=== PATIENT | female | born 1930 ===

== ENCOUNTER 2016-11-08 18:40 | Inpatient (IN) | payer MEDICARE, MEDICAID ==
[2016-11-08 18:41] VITALS: BMI 26.9
[2016-11-08] MEDS ORDERED: Piperacillin/Tazobact 3.375 GM in Sodium Chloride 0.9% 100 ML IVPB STA (19:46)
[2016-11-08] MEDS ORDERED: Sodium Chloride 0.9% 1,000 ML IV STA (19:46)
[2016-11-08] MEDS ORDERED: Albuterol-Ipratrop 3 mg / 0.5 (3 ml) UD INH STA ×3 (19:47→20:04)
[2016-11-08] MEDS ORDERED: Piperacillin/Tazobact 3.375 gm Inj IVPB ONE (19:54)
[2016-11-08 20:09] LABS: VENOUS BLOOD GAS BASE EXCESS 2.8 mmol/L (0.0-2.0); VENOUS BLOOD GAS MODE BiPAP; VENOUS BLOOD GAS PCO2 57 mmHg (40-60); VENOUS BLOOD PH 7.33 (7.32-7.43)
[2016-11-08] MEDS ORDERED: Albuterol-Ipratrop 3 mg / 0.5 (3 ml) UD ONE (20:20)
[2016-11-08 20:29] LABS: BASO # 0.2 K/uL (0.0-0.2); BASO % 0.9 % (0.0-2.0); EOS % 0.2 % (0.0-4.0); HEMATOCRIT 41.6 % (34.0-47.0); LYMPH # 2.4 K/uL (1.0-4.3); LYMPH % 11.6 % (20.0-40.0); MEAN CELL VOLUME 91.3 fl (81.0-99.0); MEAN CORPUSCULAR HEMOGLOBIN 28.7 pg (27.0-31.0); MEAN CORPUSCULAR HGB CONC 31.5 g/dL (33.0-37.0); MEAN PLATELET VOLUME 11.6 fl (7.2-11.7); MONO # 1.5 K/uL (0.0-0.8); MONO % 7.2 % (0.0-10.0); NEUT # 16.2 K/uL (1.8-7.0); NEUT % 80.1 % (50.0-75.0); PLATELET COUNT 370 K/uL (130-400); RED CELL DISTRIBUTION WIDTH 15.6 % (11.5-14.5); WHITE BLOOD COUNT 20.2 K/uL (4.8-10.8)
[2016-11-08 20:39] LABS: ALKALINE PHOSPHATASE 157 U/L (38-126); ALT/SGPT 47 U/L (9-52); AST/SGOT 67 U/L (14-36); BILIRUBIN,TOTAL 0.5 mg/dl (0.2-1.3); BLOOD UREA NITROGEN 50 mg/dl (7-17); CALCIUM 9.6 mg/dL (8.4-10.2); CARBON DIOXIDE 29 mmol/L (22-30); CHLORIDE 113 mmol/L (98-107); GFR AFRICAN-AMERICAN > 60; GLUCOSE,RANDOM 273 mg/dL (65-105); MAGNESIUM 2.7 MG/DL (1.6-2.3); PHOSPHOROUS 4.3 mg/dl (2.5-4.5); POTASSIUM 4.5 MMOL/L (3.6-5.0); SODIUM 159 mmol/l (132-148); TOTAL PROTEIN 8.6 G/DL (6.3-8.2)
--- NOTE | 2016-11-08 20:57 | ED PDOC ---
HPI: SOB/CHF/COPD Time Seen by Provider: 11/08/16 19:37 Chief Complaint (Nursing): Medical Clearance Chief Complaint (Provider): Dyspnea History Per: EMS, Family (Son) History/Exam Limitations: clinical condition (dementia) Onset/Duration Of Symptoms: Days (x1) Current Symptoms Are (Timing): Still Present Associated Symptoms: Fever Additional History Per: Jail Additional Complaint(s): 86 year old female brought in by EMS presents to ED from [facility] due to fever and dyspnea x1 day and has a past medical history of COPD, PNA , HTN, CVA, DM, and dementia. Patient is unable to give history due to dementia ; history is presented on behalf of EMS, son (power of traffic law attorney), and prison. retirement notes that fever and dyspnea worsened today. (-) vomiting and diarrhea. Patient is disabled, bedbound, and nonverbal. Latest admission was x2 months ago for PNA. PCP: Dr. Murdock Past Medical History Reviewed: Historical Data, Nursing Documentation, Vital Signs Vital Signs: Last Vital Signs Temp 101.4 F H 11/08/16 18:43 Pulse 103 H 11/08/16 23:09 Resp 16 11/08/16 18:43 BP 155/80 H 11/08/16 18:43 Pulse Ox 99 11/08/16 23:09 - Medical History PMH: Alzheimer's Disease, Anemia, COPD, CVA, Dementia, Depression, Diabetes, GERD, HTN, Pneumonia, TIA Denies: No Chronic Diseases, HIV, Chronic Kidney Disease - Surgical History Surgical History: Denies: No Surg Hx Other surgeries: PEG tube and other abdominal surgeries - Family History Family History: States: Unknown Family Hx - Living Arrangements Living Arrangements: Jail/Assist Lv ([facility]) - Home Medications Home Medications: Ambulatory Orders Medication Instructions Recorded Albuterol/Ipratropium [Duoneb 3 3 ml IH Q8H PRN 01/30/16 mg/0.5 mg (3 ml) UD] Albuterol/Ipratropium [Duoneb 3 3 ml IH TID 01/30/16 mg/0.5 mg (3 ml) UD] Insulin Aspart, Recombinant 2 - 12 unit SC QID 01/30/16 [Novolog] Insulin Detemir [Levemir] 12 unit SQ BID 01/30/16 Menthol [Icy Hot] 1 patch TOP DAILY 01/30/16 Petrolatum,White/Lanolin [Vitamin 1 appl TOP QSHIFT 01/30/16 A & D Ointment] Acetaminophen [Children's 20 mg PEG BID 02/26/16 Acetaminophen] Eyelid Cleanser Combination #5 1 appl OU DAILY 02/26/16 [Ocusoft Lid Scrub] Famotidine 2.5 mg PEG HS 02/26/16 Glipizide [Glucotrol] 5 mg PEG QAM 02/26/16 Home Med 250 mg PEG DAILY 02/26/16 Multivitamin [Multi-Delyn Liquid] 5 mg PEG QOTHERDAY 02/26/16 Potassium Chloride [K-Ayse] 7.5 mg PEG DAILY 02/26/16 Saliva Stimulant Agents Comb.3 1 spray PO DAILY 02/26/16 [Biotene Moisturizing Mouth] metFORMIN [glucOPHAGE] 500 mg PEG BID 02/26/16 cefTRIAXone 1 gm [Rocephin 1 gram 1 gm IVPB DAILY #5 bag 08/06/16 IVPB] - Allergies Allergies/Adverse Reactions: Allergies Allergy/AdvReac Type Severity Reaction Status Date / Time No Known Allergies Allergy Verified 11/08/16 18:43 Review of Systems Review Of Systems: ROS cannot be obtained secondary to pt's inabilty to answer questions. (Limited due to patient's clinical condition) Constitutional: Positive for: Fever Respiratory: Positive for: Other (dyspnea) Gastrointestinal: Negative for: Vomiting, Diarrhea Physical Exam - Reviewed Nursing Documentation Reviewed: Yes Vital Signs Reviewed: Yes - Physical Exam Appears: Positive for: In Acute Distress Head Exam: Positive for: ATRAUMATIC Skin: Positive for: Normal Color, Warm, Dry Eye Exam: Positive for: Normal appearance ENT: Positive for: Other (Dry MM) Neck: Positive for: Normal Cardiovascular/Chest: Positive for: Regular Rate, Rhythm, Tachycardia. Negative for: Edema Respiratory: Positive for: Accessory Muscle Use (increased laborous breathing), Rhonchi (bilateral lungs), Wheezing, Respiratory Distress Gastrointestinal/Abdominal: Positive for: Soft, Distended, Other (PEG tube placement) Extremity: Positive for: Normal ROM. Negative for: Tenderness, Deformity, Swelling Neurologic/Psych: Negative for: Alert (awake), Oriented (Confused) - Laboratory Results Result Diagrams: 11/08/16 20:10 11/08/16 20:10 - ECG ECG: Positive for: Interpreted By Me, Viewed By Me ECG Rhythm: Positive for: Sinus Rhythm, Sinus Tachycardia, Right Bundle Branch Block, Nonspecific Changes Rate: 103 O2 Sat by Pulse Oximetry: 99 (RA) Pulse Ox Interpretation: Normal - Critical Care Total Time (In Min): 60 Medical Decision Making Medical Decision Makin Initial impression: PNA, COPD exacerbation, possible UTI, sepsis Initial plan: * VBG shock panel * EKG * Labs * Magnesium * Phosphorus * Trop I * PTT/PT * CXR * Duonebs 3mL INH x3 * NS IV * Solumedrol 125mg IVP * Acetaminophen 957mg ID * Piperacillin IVPB * BCx * UCx * BIPAP procedure * Peak flow pre/post Tx x3 * Procalcitonin serum * Re-eval 2129 Upon re-evaluation, patient's symptoms have improved but is still in respiratory distress. Discussed goals with family, will contact Dr. Murdock to discuss admission. Dx: sepsis, HCAP, COPD exacerbation Scribe Attestation: Documented by Leeanna Hobbs acting as a scribe for Kunal Alatorre MD. Scribe Attestation: All medical record entries made by the Scribe were at my direction and personally dictated by me. I have reviewed the chart and agree that the record accurately reflects my personal performance of the history, physical exam, medical decision making, and the department course for this patient. I have also personally directed, reviewed, and agree with the discharge instructions and disposition. Disposition - Clinical Impression Clinical Impression: COPD (chronic obstructive pulmonary disease), Dehydration, CHF (congestive heart failure), Hypernatremia, Diabetes mellitus with hyperglycemia, Sepsis, Respiratory failure, Healthcare-associated pneumonia - Patient ED Disposition Is Patient to be Admitted: Yes Discussed With : Sadiq Murdock Doctor Will See Patient In The: Hospital Counseled Patient/Family Regarding: Studies Performed, Diagnosis - Disposition Disposition Time: 21:30 Condition: CRITICAL - Pt Status Changed To: Hospital Disposition Of: Inpatient - Admit Certification Admit to Inpatient:: After my assessment, the patient will require hospitalization for at least two midnights. This is because of the severity of symptoms shown, intensity of services needed, and/or the medical risk in this patient being treated as an outpatient. - POA Present On Arrival: Poor Glycemic Control Core Measure Indicators: Pneumonia
[2016-11-08 21:23] LABS: PARTIAL THROMBOPLASTIN TIME 23.6 SECONDS (23.3-32.5)
[2016-11-08] MEDS ORDERED: Ciprofloxacin 400mg/200ml D5W 200 ML IVPB STA (21:31)
--- NOTE | 2016-11-08 21:59 | CP.PCM.CON ---
History of Present Illness - History of Present Illness History of Present Illness: CC/Reason for ICU: resp failure requiring bipap 2/2 HCAP HPI: This is an 86 y/o female with COPD/DM2/?TIA or CVA/Alzheimer's disease/ GERD who comes from [place] with respiratory failure. She has had multiple prior admissions for the same reason, last being in July. Patient unable to provide any further details due to mental status. Per son, she was at baseline on Wednesday. PMD: Collette ROS: unable to obtain 2/2 mental status MHx: COPD/DM2/?TIA or CVA/Alzheimer's disease/GERD SHx: PEG tube Allergies: NKDA Medications: As per med rec Family Hx: Unable to obtain Social Hx: Resides at [place], no EtOH, no tobacco Surrogate Decision Maker: Son, Carlos Joy, info on file; patient is DNR/ DNI Past Patient History - Infectious Disease Hx of Infectious Diseases: None - Past Medical History & Family History Past Medical History?: Yes - Past Social History Smoking Status: Former Smoker - CARDIAC Hx Hypertension: Yes - PULMONARY Hx Chronic Obstructive Pulmonary Disease (COPD): Yes Hx Pneumonia: Yes - NEUROLOGICAL Hx Alzheimer's Disease: Yes Hx Dementia: Yes Hx Transient Ischemic Attacks (TIA): Yes - HEENT Hx HEENT Problems: Yes Hx Cataracts: Yes (Left eye) - RENAL Hx Chronic Kidney Disease: No - ENDOCRINE/METABOLIC Hx Endocrine Disorders: Yes Hx Diabetes Mellitus Type 2: Yes - HEMATOLOGICAL/ONCOLOGICAL Hx Anemia: Yes Hx Human Immunodeficiency Virus (HIV): No - INTEGUMENTARY Hx Dermatological Problems: No - MUSCULOSKELETAL/RHEUMATOLOGICAL Hx Musculoskeletal Disorders: Yes Hx Falls: Yes - GASTROINTESTINAL Hx Gastrointestinal Disorders: Yes Hx Gastroesophageal Reflux: Yes - GENITOURINARY/GYNECOLOGICAL Hx Genitourinary Disorders: No - PSYCHIATRIC Hx Depression: Yes - SURGICAL HISTORY Hx Surgeries: Yes Hx Eye Surgery: Yes (R eye cataract) Other/Comment: PEG tube - ANESTHESIA Hx Anesthesia: Yes Hx Anesthesia Reactions: No Meds Allergies/Adverse Reactions: Allergies Allergy/AdvReac Type Severity Reaction Status Date / Time No Known Allergies Allergy Verified 11/08/16 18:43 - Medications Medications: Current Medications Acetaminophen (Tylenol 325 Mg Supp) 975 mg WA ONCE PRN PRN Reason: Fever >100.4 F Ciprofloxacin (Cipro 400mg/200ml Dsw) 200 mls @ 200 mls/hr IVPB STAT STA Stop: 11/08/16 22:30 Vancomycin HCl 1 gm/ Sodium (Chloride) 250 mls @ 166.667 mls/hr IVPB STAT STA Stop: 11/08/16 23:01 Physical Exam - Constitutional Appears: No Acute Distress - Head Exam Head Exam: ATRAUMATIC, NORMOCEPHALIC - Eye Exam Eye Exam: EOMI, PERRL - ENT Exam ENT Exam: Mucous Membranes Dry - Neck Exam Neck exam: Positive for: Full Rom - Respiratory Exam Respiratory Exam: Rhonchi, Wheezes - Cardiovascular Exam Cardiovascular Exam: REGULAR RHYTHM, +S1, +S2 - GI/Abdominal Exam GI & Abdominal Exam: Normal Bowel Sounds, Soft - Extremities Exam Extremities exam: Positive for: normal inspection - Neurological Exam Neurological exam: Altered - Skin Skin Exam: Dry, Warm Results - Vital Signs Recent Vital Signs: Last Vital Signs Temp 101.4 F H 11/08/16 18:43 Pulse 106 H 11/08/16 18:43 Resp 16 11/08/16 18:43 BP 155/80 H 11/08/16 18:43 Pulse Ox 99 11/08/16 21:40 - Labs Result Diagrams: 11/08/16 20:10 11/08/16 20:10 - EKG Data EKG Interpreted by: Myself EKG shows normal: Sinus rhythm Rate: Tachycardia - EKG Data EKG comments: IVCD - Imaging and Cardiology Chest x-ray Status: Image reviewed by me (poor insp film. No clear infiltrate.) Assessment & Plan (1) Sepsis Assessment and Plan: This is an 86 y/o with multiple medical conditions here with sepsis 2/2 to likely HCAP. (1) Severe sepsis Assessment and Plan: 1) HCAP/Respiratory Failure/Sepsis -Admit to ICU -Duonebs q6h -Cont Vanc/Zosyn/Cipro IV -Rec'd IV solumedrol x 1, will re-assess and repeat only if no improvement in respiratory status given diabetes -f/u Cultures -Repeat lactic acid 2) Hypernatremia -Free water deficit calculated to be ~3L -1/2 NS, but at low rate given already high BNP (~75 cc hr) 3) DM2 -- q6h accucheck, SSI 4) DVT PPx -- SQ Lovenox 5) Code status -- DNR/DNI Crit Care time: 45 Status: Acute Priority: High (2) Acute respiratory failure with hypoxia Status: Acute (3) COPD (chronic obstructive pulmonary disease) Status: Acute (4) DVT prophylaxis Status: Acute (5) Diabetes mellitus with hyperglycemia Status: Acute (6) Dementia Status: Chronic
[2016-11-08] MEDS ORDERED: Dextrose 5%/0.45% NS 1,000 ML IV SCH (22:15)
[2016-11-08] MEDS ORDERED: Acetaminophen 650mg/20.3ml solution UD PEG PRN (22:21)
[2016-11-08] MEDS ORDERED: Albuterol-Ipratrop 3 mg / 0.5 (3 ml) UD INH PRN (22:25)
[2016-11-08 22:26] LABS: NEUTROPHIL 73 % (42-75); TOTAL CELLS COUNTED 100
[2016-11-08 22:27] LABS: STOMATOCYTES SLIGHT
[2016-11-08] MEDS ORDERED: LANOLIN TOP SCH (22:30)
[2016-11-08] MEDS ORDERED: Sodium Chloride 0.45% 1,000 ML IV SCH (22:30)
[2016-11-08] MEDS ORDERED: PETROLATUM WHITE TOP SCH (22:30)
[2016-11-08] MEDS ORDERED: APPL TOP SCH (22:30)
[2016-11-08] MEDS ORDERED: Vancomycin 1 g Inj ONE (23:15)
[2016-11-08] MEDS ORDERED: Vitamins A & D Oint UD Foilpak TOP SCH (23:15)
[2016-11-09] MEDS: Insulin Lispro (humaLOG) 100 Units/ml Inj SC SCH ×4 (02:14→17:44)
[2016-11-09] MEDS ORDERED: Insulin Regular 100 units/ml SC ONE (04:18)
[2016-11-09] MEDS: Piperacillin/Tazobact 3.375 GM in Sodium Chloride 0.9% 100 ML IVPB SCH ×4 (04:31→22:27)
[2016-11-09 05:54] LABS: BASO % 0.2 % (0.0-2.0); HEMATOCRIT 36.8 % (34.0-47.0); LYMPH # 0.6 K/uL (1.0-4.3); LYMPH % 3.2 % (20.0-40.0); MEAN CELL VOLUME 92.6 fl (81.0-99.0); MEAN CORPUSCULAR HEMOGLOBIN 28.9 pg (27.0-31.0); MEAN CORPUSCULAR HGB CONC 31.2 g/dL (33.0-37.0); MONO # 0.1 K/uL (0.0-0.8); MONO % 0.8 % (0.0-10.0); NEUT # 16.7 K/uL (1.8-7.0); NEUT % 95.8 % (50.0-75.0); PLATELET COUNT 247 K/uL (130-400); RED CELL DISTRIBUTION WIDTH 15.1 % (11.5-14.5); WHITE BLOOD COUNT 17.5 K/uL (4.8-10.8)
[2016-11-09 06:09] LABS: BLOOD UREA NITROGEN 48 mg/dl (7-17); CALCIUM 8.6 mg/dL (8.4-10.2); CARBON DIOXIDE 19 mmol/L (22-30); CHLORIDE 116 mmol/L (98-107); GFR AFRICAN-AMERICAN > 60; POTASSIUM 4.6 MMOL/L (3.6-5.0); SODIUM 157 mmol/l (132-148)
[2016-11-09 06:10] LABS: GLUCOSE,RANDOM 479 mg/dL (65-105)
[2016-11-09 07:01] LABS: NEUTROPHIL 91 % (42-75); TOTAL CELLS COUNTED 100
[2016-11-09] MEDS ORDERED: Pneumococcal 23-Valent Vaccine IM ONE (08:20)
--- NOTE | 2016-11-09 08:31 | CARD ---
APPROVED REPORT EKG Measurement Heart [id number] <Conclusion> Sinus tachycardia Incomplete right bundle branch block T wave abnormality, consider anterior ischemia Abnormal ECG
--- NOTE | 2016-11-09 08:51 | RAD ---
HISTORY: Sepsis Patient COMPARISON: Comparison is made to 08/02/2016 FINDINGS: LUNGS: No evidence of new infiltrate or consolidation in the lungs. PLEURA: No significant pleural effusion identified, no pneumothorax apparent. CARDIOVASCULAR: Normal. OSSEOUS STRUCTURES: No significant abnormalities. VISUALIZED UPPER ABDOMEN: Normal. OTHER FINDINGS: None. IMPRESSION: No active disease.
[2016-11-09] MEDS ORDERED: SALIVA STIMULANT AGENTS COMB PO SCH (09:00)
[2016-11-09] MEDS ORDERED: Ciprofloxacin 400mg/200ml D5W 200 ML IVPB SCH (09:00)
[2016-11-09] MEDS ORDERED: [UNRECOGNIZED DRUG - OTHER] OU SCH (09:00)
--- NOTE | 2016-11-09 09:47 | CP.CCUPN ---
CCU Subjective - Physician Review Events Since Last Encounter (Free Text): 11/09/16 16:26 The Patient was seen and examined at the bedside, Medical records reviewed, all clinical/lab/hemodynamic/radiographic data were reviewed and management issues were discussed and formulated, Events reviewed Pain issues, skin care, head of the bed elevation, GI/DVT prophylaxis, glycemic control were addressed. 86 Y/O F with PMHx of COPD, GERD, DM2, TIA, CVA and Alzheimer's disease who was transferred from [place] last night with fever, dyspnea x1 day and respiratory failure. Admitted to the ICU for HCAP and started on IV Vancomycin, Zosyn and Ciprofloxacin Patient afebrile BP stable ABG with elevated CO2, placed on BIPAP She has had multiple prior admissions for the same reason, last being in July. Patient unable to provide any further details due to mental status. Per son, the patient is DNR/DNI CCU Objective - Vital Signs / Intake & Output Vital Signs (Last 4 hours): Vital Signs Temp Pulse Resp BP Pulse Ox 11/09/16 08:00 99.2 F 89 25 H 143/72 99 11/09/16 06:00 98.7 F 88 24 148/61 100 Intake and Output (Last 8hrs): Intake & Output 11/08/16 11/09/16 11/09/16 22:59 06:59 14:59 Intake Total 900 150 Balance 900 150 Intake: IV 450 150 Intake, Piggyback 450 - Physical Exam Physical Exam Limitations: Positive for: Clinical Condition Head: Positive for: Atraumatic, Normocephalic Pupils: Positive for: PERRL. Negative for: Sluggish, Non-Reactive Extroacular Muscles: Positive for: EOMI. Negative for: Gaze Palsy, Entrapment Mouth: Positive for: Dry. Negative for: Moist Mucous Membranes Pharnyx: Positive for: Normal. Negative for: ERYTHEMA Nose (External): Positive for: Atraumatic. Negative for: Abrasion, Contusion Nose (Internal): Positive for: Normal Inspection Neck: Positive for: Normal Range of Motion, Trachea Midline. Negative for: Meningeal Signs, MIDLINE TENDERNESS, Paraspinal Tenderness, JVD, Lymphadenopathy , Bruit, Other Respiratory/Chest: Positive for: Good Air Exchange, Decreased Breath Sounds, Rales, Rhonchi. Negative for: Clear to Auscultation, Respiratory Distress, Accessory Muscle Use, Wheezes Cardiovascular: Positive for: Regular Rate and Rhythm, Normal S1, S2, Peripheal Pulses Present. Negative for: Murmurs, Irregular Rhythm, Tachycardic, Bradycardic Abdomen: Positive for: Normal Bowel Sounds. Negative for: Tenderness, Distention - Medications Active Medications: Active Medications Generic Name Dose Route Start Last Admin Trade Name Freq PRN Reason Stop Dose Admin Acetaminophen 975 mg 11/08/16 19:44 11/08/16 21:05 Tylenol 325 Mg Supp UT 975 mg ONCE PRN Administration Fever >100.4 F Acetaminophen 650 mg 11/08/16 22:21 Tylenol 650mg/20.3ml Solution Ud PEG Q6H PRN Fever >100.4 F Albuterol/Ipratropium 3 ml 11/08/16 22:25 Duoneb 3 Mg/0.5 Mg (3 Ml) Ud INH RQ6 PRN Shortness of Breath Enoxaparin Sodium 40 mg 11/09/16 09:00 Lovenox SC DAILY [facility] Protocol Home Med 1 appl 11/09/16 09:00 Eyelid Cleanser Combination #5 [Ocusoft Lid Scrub] OU DAILY [facility] Home Med 2.5 mg 11/09/16 22:00 Famotidine [Famotidine] PEG HS [facility] Home Med 1 spray 11/09/16 09:00 Saliva Stimulant Agents Comb.3 [Biotene Moisturizing Mouth] PO DAILY [facility] Piperacillin Sod/Tazobactam 100 mls @ 100 mls/hr 11/09/16 04:00 11/09/16 04:31 Sod 3.375 gm/ Sodium Chloride IVPB 100 mls/hr Q6 MARILEE Administration Sodium Chloride 1,000 mls @ 75 mls/hr 11/08/16 22:30 11/09/16 00:16 Sodium Chloride 0.45% IV 11/09/16 11:49 75 mls/hr .[id number] MARILEE Administration Ciprofloxacin 200 mls @ 200 mls/hr 11/09/16 14:00 Cipro 400mg/200ml Dsw IVPB Q12@0200,1400 [facility] Vancomycin HCl 1 gm/ Sodium 250 mls @ 166.667 mls/hr 11/09/16 11:00 Chloride IVPB Q12@1100,2300 [facility] Insulin Human Lispro 0 units 11/08/16 22:15 11/09/16 06:33 Humalog SC 6 unit Q6H [facility] Administration Protocol Multivitamins/Vitamin C 5 ml 11/10/16 09:00 Multi-Delyn Liquid PEG QOTHERDAY [facility] Vitamin A 1 ea 11/08/16 23:15 Vitamin A & D Oint Ud Foilpak TOP QSHIFT [facility] - Patient Studies Lab Studies: Lab Studies 11/09/16 11/09/16 11/09/16 Range/Units 06:29 04:40 04:04 WBC 17.5 H (4.8-10.8) K/uL RBC 3.98 (3.80-5.20) Mil/uL Hgb 11.5 L (12.0-16.0) g/dL Hct 36.8 (34.0-47.0) % MCV 92.6 (81.0-99.0) fl MCH 28.9 (27.0-31.0) pg MCHC 31.2 L (33.0-37.0) g/dL RDW 15.1 H (11.5-14.5) % Plt Count 247 D (130-400) K/uL MPV 11.0 (7.2-11.7) fl Neut % (Auto) 95.8 H (50.0-75.0) % Lymph % (Auto) 3.2 L (20.0-40.0) % Perkins % (Auto) 0.8 (0.0-10.0) % Eos % (Auto) 0.0 (0.0-4.0) % Baso % (Auto) 0.2 (0.0-2.0) % Neut # 16.7 H (1.8-7.0) K/uL Lymph # 0.6 L (1.0-4.3) K/uL Perkins # 0.1 (0.0-0.8) K/uL Eos # 0.0 (0.0-0.7) K/uL Baso # 0.0 (0.0-0.2) K/uL Neutrophils % (Manual) 91 H (42-75) % Band Neutrophils % 3 H (0-2) % Lymphocytes % (Manual) 6 L (20-50) % Monocytes % (Manual) 0 (0-10) % Platelet Estimate Normal (NORMAL) Anisocytosis (manual) Slight Sodium 157 H (132-148) mmol/l Potassium 4.6 (3.6-5.0) MMOL/L Chloride 116 H (98-107) mmol/L Carbon Dioxide 19 L (22-30) mmol/L Anion Gap 27 H (10-20) BUN 48 H (7-17) mg/dl Creatinine 0.9 (0.7-1.2) mg/dL Est GFR ( Amer) > 60 Est GFR (Non-Af Amer) 60 POC Glucose (mg/dL) 434 H* > 500 H* (65-110) mg/dL Random Glucose 479 H* D (65-105) mg/dL Calcium 8.6 (8.4-10.2) mg/dL Influenza Typ A,B (EIA) (NEGATIVE) 11/09/16 11/08/16 Range/Units 02:05 22:14 WBC (4.8-10.8) K/uL RBC (3.80-5.20) Mil/uL Hgb (12.0-16.0) g/dL Hct (34.0-47.0) % MCV (81.0-99.0) fl MCH (27.0-31.0) pg MCHC (33.0-37.0) g/dL RDW (11.5-14.5) % Plt Count (130-400) K/uL MPV (7.2-11.7) fl Neut % (Auto) (50.0-75.0) % Lymph % (Auto) (20.0-40.0) % Perkins % (Auto) (0.0-10.0) % Eos % (Auto) (0.0-4.0) % Baso % (Auto) (0.0-2.0) % Neut # (1.8-7.0) K/uL Lymph # (1.0-4.3) K/uL Perkins # (0.0-0.8) K/uL Eos # (0.0-0.7) K/uL Baso # (0.0-0.2) K/uL Neutrophils % (Manual) (42-75) % Band Neutrophils % (0-2) % Lymphocytes % (Manual) (20-50) % Monocytes % (Manual) (0-10) % Platelet Estimate (NORMAL) Anisocytosis (manual) Sodium (132-148) mmol/l Potassium (3.6-5.0) MMOL/L Chloride (98-107) mmol/L Carbon Dioxide (22-30) mmol/L Anion Gap (10-20) BUN (7-17) mg/dl Creatinine (0.7-1.2) mg/dL Est GFR ( Amer) Est GFR (Non-Af Amer) POC Glucose (mg/dL) 487 H* (65-110) mg/dL Random Glucose (65-105) mg/dL Calcium (8.4-10.2) mg/dL Influenza Typ A,B (EIA) Negative for flu a/b (NEGATIVE) Laboratory Results - last 24 hr 11/08/16 11/09/16 11/09/16 22:14 02:05 04:04 WBC RBC Hgb Hct MCV MCH MCHC RDW Plt Count MPV Neut % (Auto) Lymph % (Auto) Perkins % (Auto) Eos % (Auto) Baso % (Auto) Neut # Lymph # Perkins # Eos # Baso # Neutrophils % (Manual) Band Neutrophils % Lymphocytes % (Manual) Monocytes % (Manual) Platelet Estimate Anisocytosis (manual) Sodium Potassium Chloride Carbon Dioxide Anion Gap BUN Creatinine Est GFR ( Amer) Est GFR (Non-Af Amer) POC Glucose (mg/dL) 487 H* > 500 H* Random Glucose Calcium Influenza Typ A,B (EIA) Negative for flu a/b 11/09/16 11/09/16 04:40 06:29 WBC 17.5 H RBC 3.98 Hgb 11.5 L Hct 36.8 MCV 92.6 MCH 28.9 MCHC 31.2 L RDW 15.1 H Plt Count 247 D MPV 11.0 Neut % (Auto) 95.8 H Lymph % (Auto) 3.2 L Perkins % (Auto) 0.8 Eos % (Auto) 0.0 Baso % (Auto) 0.2 Neut # 16.7 H Lymph # 0.6 L Perkins # 0.1 Eos # 0.0 Baso # 0.0 Neutrophils % (Manual) 91 H Band Neutrophils % 3 H Lymphocytes % (Manual) 6 L Monocytes % (Manual) 0 Platelet Estimate Normal Anisocytosis (manual) Slight Sodium 157 H Potassium 4.6 Chloride 116 H Carbon Dioxide 19 L Anion Gap 27 H BUN 48 H Creatinine 0.9 Est GFR ( Amer) > 60 Est GFR (Non-Af Amer) 60 POC Glucose (mg/dL) 434 H* Random Glucose 479 H* D Calcium 8.6 Influenza Typ A,B (EIA) Fingerstick Blood Sugar Results: 434 Review of Systems - Review of Systems Systems not reviewed;Unavailable: Altered Mental Status Critical Care Progress Note - Extremities/Vascular Does the Patient have a Central Venous Catheter?: No Does the Patient need a Central Venous Catheter?: No Does the Patient have a Whitten Catheter?: No Does the Patient need a Whitten Catheter?: No - Nutrition Nutrition: Nutrition Category Date Time Status NPO Diet [DIET] Diets 11/08/16 Breakfast Active Assessment/Plan (1) Acute respiratory failure with hypoxia Current Visit: No Status: Acute Comment: Wean off FIO2, discontinue BIPAP Supolemental Oxygen to keep O2 sat >94% Frequent Neuro-check PEG tube feeding MONITOR URINE OUTPUT BD NEBS Q 6H PRN Aggressive pulmonary toilet, Aspiration precautions GI/DVT PPX with SCDs, SQ Lovenox and Famotidine Duonebs q6h (2) Severe sepsis Current Visit: No Status: Acute Comment: Frequent LABS/LYTES/CBC, XR, EKG Continue Antibiotics with IV Vancomycin, Zosyn and Ciprofloxacin Keep MAP 65-75 IV Hydratoins Monitor urine output Strict Is & Os Aggressive Pulmonary toilets (3) HCAP (healthcare-associated pneumonia) Current Visit: Yes Status: Acute Comment: PER SEVERE SEPSIS (4) CHF (congestive heart failure) Current Visit: Yes Status: Acute (5) COPD (chronic obstructive pulmonary disease) Current Visit: Yes Status: Acute Comment: Duonebs q6h (6) Hypernatremia Current Visit: Yes Status: Acute Priority: High Comment: Free water deficit calculated to be ~3L IV Hydrations with Dextrose 5% In Water Sodium level 159----:>157 (7) Dementia Current Visit: No Status: Chronic Comment: Per son, the patient is DNR/DNI (8) DVT prophylaxis Current Visit: No Status: Acute Comment: Lovenox - Assessment and Plan (Free Text) Assessment: TOTAL CRITICAL CARE TIME 54 MINUTES
[2016-11-09] MEDS: Enoxaparin 40 mg Syringe SC SCH (11:27)
[2016-11-09] MEDS: Ciprofloxacin 400mg/200ml D5W 200 ML IVPB SCH (15:04)
--- NOTE | 2016-11-09 18:03 | CP.PCM.HP ---
History of Present Illness - History of Present Illness History of Present Illness: CC: Dyspnea. 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 Pt arrives to hospital with difficulty in breathing associated to fever, TMAx 101.4 Worsening symptoms : Dementia, Lab result at [place]: WBC elevated 15,000 Glucose > 400. Pt is DNR/ DNI by her son Carlos Carter who has the power of grinder watch parts. Aggravated Factor: Pt nonverbal, Bedbound. As per Son: No Epistaxis, syncope, vomiting, diarrhea, sick contact. PMHx: HTN, CHF, DMII, COPD, TIA, Anemia, Depression, Alzheimer's, Dementia EKG: Sinus Tachycardia. Incomplete R bundle branch block, anterior Ischemia. CXR: No new infiltrate or consolidation. , Present on Admission - Present on Admission Any Indicators Present on Admission: Yes History of Uncontrolled Diabetes: Yes Review of Systems - Review of Systems Systems not reviewed;Unavailable: Acuity of Condition, Respiratory Distress, Dementia Past Patient History - Infectious Disease Hx of Infectious Diseases: None - Past Medical History & Family History Past Medical History?: Yes Pertinent Family History: Unknown. - Past Social History Smoking Status: Former Smoker Alcohol: None Drugs: Denies Home Situation {Lives}: Usp - CARDIAC Hx Cardiac Disorders: Yes Hx Congestive Heart Failure: Yes Hx Hypertension: Yes - PULMONARY Hx Respiratory Disorders: Yes Hx Chronic Obstructive Pulmonary Disease (COPD): Yes - NEUROLOGICAL Hx Neurological Disorder: Yes - HEENT Hx HEENT Problems: Yes Hx Cataracts: Yes (Left eye) - RENAL Hx Chronic Kidney Disease: No - ENDOCRINE/METABOLIC Hx Endocrine Disorders: Yes Hx Diabetes Mellitus Type 2: Yes - HEMATOLOGICAL/ONCOLOGICAL Hx Blood Disorders: No Hx AIDS: No Hx Human Immunodeficiency Virus (HIV): No - INTEGUMENTARY Hx Dermatological Problems: No - MUSCULOSKELETAL/RHEUMATOLOGICAL Hx Musculoskeletal Disorders: No Hx Falls: No - GASTROINTESTINAL Hx Gastrointestinal Disorders: Yes Hx Gastroesophageal Reflux: Yes - GENITOURINARY/GYNECOLOGICAL Hx Genitourinary Disorders: No - PSYCHIATRIC Hx Psychophysiologic Disorder: Yes Hx Depression: Yes Hx Substance Use: No - SURGICAL HISTORY Hx Surgeries: Yes Hx Eye Surgery: Yes (R eye cataract) Other/Comment: PEG tube - ANESTHESIA Hx Anesthesia: Yes Hx Anesthesia Reactions: No Meds Allergies/Adverse Reactions: Allergies Allergy/AdvReac Type Severity Reaction Status Date / Time No Known Allergies Allergy Verified 11/08/16 18:43 Physical Exam - Constitutional Appears: Chronically Ill - Head Exam Head Exam: NORMAL INSPECTION - Eye Exam Eye Exam: PERRL - ENT Exam Additional comments: poor oral hygiene - Neck Exam Neck exam: Positive for: Normal Inspection - Respiratory Exam Respiratory Exam: Decreased Breath Sounds (at bases), Rales (at bases), Rhonchi (b/l) - Cardiovascular Exam Cardiovascular Exam: REGULAR RHYTHM - GI/Abdominal Exam GI & Abdominal Exam: Normal Bowel Sounds, Soft - Extremities Exam Additional comments: B/L legs edema - Back Exam Additional comments: Pressure ulcer Left buttock - Neurological Exam Additional comments: Open eyes at times, Mumbling sounds, no following commands , purposeless movements U/E L/E , generalized weakness - Skin Skin Exam: Warm Results - Vital Signs Recent Vital Signs: Last Vital Signs Temp 98.6 F 11/09/16 16:00 Pulse 86 11/09/16 16:51 Resp 14 11/09/16 16:00 BP 147/68 11/09/16 16:00 Pulse Ox 100 11/09/16 16:00 reviewed J.PKane - Labs Result Diagrams: 11/10/16 04:45 11/10/16 04:45 Labs: Laboratory Results - last 24 hr 11/08/16 11/09/16 11/09/16 22:14 02:05 04:04 WBC RBC Hgb Hct MCV MCH MCHC RDW Plt Count MPV Neut % (Auto) Lymph % (Auto) [place] % (Auto) Eos % (Auto) Baso % (Auto) Neut # Lymph # [place] # Eos # Baso # Neutrophils % (Manual) Band Neutrophils % Lymphocytes % (Manual) Monocytes % (Manual) Platelet Estimate Anisocytosis (manual) Sodium Potassium Chloride Carbon Dioxide Anion Gap BUN Creatinine Est GFR ( Amer) Est GFR (Non-Af Amer) POC Glucose (mg/dL) 487 H* > 500 H* Random Glucose Calcium Influenza Typ A,B (EIA) Negative for flu a/b 11/09/16 11/09/16 11/09/16 04:40 06:29 11:33 WBC 17.5 H RBC 3.98 Hgb 11.5 L Hct 36.8 MCV 92.6 MCH 28.9 MCHC 31.2 L RDW 15.1 H Plt Count 247 D MPV 11.0 Neut % (Auto) 95.8 H Lymph % (Auto) 3.2 L [place] % (Auto) 0.8 Eos % (Auto) 0.0 Baso % (Auto) 0.2 Neut # 16.7 H Lymph # 0.6 L [place] # 0.1 Eos # 0.0 Baso # 0.0 Neutrophils % (Manual) 91 H Band Neutrophils % 3 H Lymphocytes % (Manual) 6 L Monocytes % (Manual) 0 Platelet Estimate Normal Anisocytosis (manual) Slight Sodium 157 H Potassium 4.6 Chloride 116 H Carbon Dioxide 19 L Anion Gap 27 H BUN 48 H Creatinine 0.9 Est GFR ( Amer) > 60 Est GFR (Non-Af Amer) 60 POC Glucose (mg/dL) 434 H* 273 H Random Glucose 479 H* D Calcium 8.6 Influenza Typ A,B (EIA) 11/09/16 17:41 WBC RBC Hgb Hct MCV MCH MCHC RDW Plt Count MPV Neut % (Auto) Lymph % (Auto) [place] % (Auto) Eos % (Auto) Baso % (Auto) Neut # Lymph # [place] # Eos # Baso # Neutrophils % (Manual) Band Neutrophils % Lymphocytes % (Manual) Monocytes % (Manual) Platelet Estimate Anisocytosis (manual) Sodium Potassium Chloride Carbon Dioxide Anion Gap BUN Creatinine Est GFR ( Amer) Est GFR (Non-Af Amer) POC Glucose (mg/dL) 307 H Random Glucose Calcium Influenza Typ A,B (EIA) reviewed J.P. - EKG Data EKG comments: reviewed J.P. - Imaging and Cardiology Chest x-ray Status: Report reviewed by me (J.P.) Assessment & Plan (1) Respiratory failure Status: Acute (2) Severe sepsis Status: Acute (3) Hypernatremia Status: Acute Priority: High (4) COPD (chronic obstructive pulmonary disease) Status: Acute (5) Diabetes mellitus with hyperglycemia Status: Acute - Assessment and Plan (Free Text) Plan: BIPAP, Vanco, Cipro, Zosyn, Duoneb, Insulin and rest of Tx. F/U Blood C-S, U C- S , f/u CT Chest , ECHO ICU Time: 65 min. - Date & Time Date: 11/09/16 Time: 10:30
[2016-11-09] MEDS ORDERED: FAMOTIDINE PEG SCH (22:00)
[2016-11-10] MEDS: Insulin Lispro (humaLOG) 100 Units/ml Inj SC SCH ×5 (00:14→17:30)
[2016-11-10] MEDS: Ciprofloxacin 400mg/200ml D5W 200 ML IVPB SCH ×2 (02:00→16:07)
[2016-11-10] MEDS: Piperacillin/Tazobact 3.375 GM in Sodium Chloride 0.9% 100 ML IVPB SCH ×4 (03:47→21:20)
[2016-11-10 05:27] LABS: HEMATOCRIT 30.9 % (34.0-47.0); MEAN CELL VOLUME 92.7 fl (81.0-99.0); MEAN CORPUSCULAR HEMOGLOBIN 28.7 pg (27.0-31.0); MEAN CORPUSCULAR HGB CONC 30.9 g/dL (33.0-37.0); RED CELL DISTRIBUTION WIDTH 15.1 % (11.5-14.5); WHITE BLOOD COUNT 13.3 K/uL (4.8-10.8)
[2016-11-10 05:37] LABS: BLOOD UREA NITROGEN 37 mg/dl (7-17); CALCIUM 7.9 mg/dL (8.4-10.2); CARBON DIOXIDE 23 mmol/L (22-30); CHLORIDE 117 mmol/L (98-107); GFR AFRICAN-AMERICAN > 60; GLUCOSE,RANDOM 346 mg/dL (65-105); POTASSIUM 3.6 MMOL/L (3.6-5.0); SODIUM 152 mmol/l (132-148)
--- NOTE | 2016-11-10 07:35 | CP.CCUPN ---
CCU Subjective - Physician Review Events Since Last Encounter (Free Text): 11/10/16 10:46 The Patient was seen and examined at the bedside, Medical records reviewed, all clinical/lab/hemodynamic/radiographic data were reviewed and management issues were discussed and formulated, Events reviewed Pain issues, skin care, head of the bed elevation, GI/DVT prophylaxis, glycemic control were addressed. 86 Y/O shelter resident F with PMHx of COPD, GERD, DM2, TIA, CVA and Alzheimer's disease who was transferred from [place] last night with fever, dyspnea x1 day and respiratory failure. She has had multiple prior admissions for the same reason, last being in July. Admitted to the ICU for HCAP and started on IV Vancomycin, Zosyn and Ciprofloxacin Patient afebrile BP stable ABG with elevated CO2, placed on BIPAP, then discontinue BIPAP On Supplemental Oxygen to keep O2 sat >94% Afebrile for the last 24 hours Leucocytosis trending down 2017.513K Urine for gram negative rods On IV Antibiotics with Zosyn and Ciprofloxacin Will D/C IV Vancomycin Last 24 H I&O 2960/700 Sodium level 159----:>157 ----:>152 Free water via PEG Per son, the patient is DNR/DNI 11/10/16 11:55 For this admission, Patient with chronic not acute CHF, type undetermined CCU Objective - Vital Signs / Intake & Output Vital Signs (Last 4 hours): Vital Signs Temp Pulse Resp BP Pulse Ox 11/10/16 06:00 76 25 H 117/47 L 100 11/10/16 04:00 98.7 F 73 23 98 Intake and Output (Last 8hrs): Intake & Output 11/09/16 11/10/16 11/10/16 22:59 06:59 14:59 Intake Total 775 1385 Output Total 350 350 Balance 425 1035 Intake: IV 375 685 Intake, Piggyback 400 350 Tube Feeding 200 Free Water Flush 150 Output: Gastric Amount 0 0 Stomach 0 0 Urine 350 350 Urethral (Whitten) 350 350 Other: # Voids Urethral (Whitten) 1 - Physical Exam Head: Positive for: Atraumatic, Normocephalic Pupils: Positive for: PERRL. Negative for: Sluggish, Non-Reactive Extroacular Muscles: Positive for: EOMI. Negative for: Gaze Palsy, Entrapment Conjunctiva: Positive for: Normal. Negative for: Injected, Icteric Mouth: Positive for: Dry. Negative for: Moist Mucous Membranes Pharnyx: Positive for: Normal. Negative for: ERYTHEMA Nose (External): Positive for: Atraumatic. Negative for: Abrasion, Contusion Nose (Internal): Positive for: Normal Inspection Neck: Positive for: Normal Range of Motion, Trachea Midline. Negative for: Meningeal Signs, MIDLINE TENDERNESS, Paraspinal Tenderness, JVD, Lymphadenopathy , Bruit, Other Respiratory/Chest: Positive for: Good Air Exchange, Decreased Breath Sounds, Rales, Rhonchi. Negative for: Clear to Auscultation, Respiratory Distress, Accessory Muscle Use, Wheezes Cardiovascular: Positive for: Regular Rate and Rhythm, Normal S1, S2, Peripheal Pulses Present. Negative for: Murmurs, Irregular Rhythm, Tachycardic, Bradycardic Abdomen: Positive for: Normal Bowel Sounds. Negative for: Tenderness, Distention Psychiatric: Positive for: Lethargic. Negative for: Alert, Oriented x 3 - Medications Active Medications: Active Medications Generic Name Dose Route Start Last Admin Trade Name Freq PRN Reason Stop Dose Admin Acetaminophen 975 mg 11/08/16 19:44 11/08/16 21:05 Tylenol 325 Mg Supp [place] 975 mg ONCE PRN Administration Fever >100.4 F Acetaminophen 650 mg 11/08/16 22:21 Tylenol 650mg/20.3ml Solution Ud PEG Q6H PRN Fever >100.4 F Albuterol/Ipratropium 3 ml 11/08/16 22:25 Duoneb 3 Mg/0.5 Mg (3 Ml) Ud INH RQ6 PRN Shortness of Breath Enoxaparin Sodium 40 mg 11/09/16 09:00 11/09/16 11:27 Lovenox SC 40 mg DAILY MARILEE Administration Protocol Piperacillin Sod/Tazobactam 100 mls @ 100 mls/hr 11/09/16 04:00 11/10/16 03:47 Sod 3.375 gm/ Sodium Chloride IVPB 100 mls/hr Q6 MARILEE Administration Ciprofloxacin 200 mls @ 200 mls/hr 11/09/16 14:00 11/10/16 02:00 Cipro 400mg/200ml Dsw IVPB 200 mls/hr Q12@0200,1400 MARILEE Administration Vancomycin HCl 1 gm/ Sodium 250 mls @ 166.667 mls/hr 11/09/16 11:00 11/09/16 22 :28 Chloride IVPB 166.667 mls/hr Q12@1100,2300 MARILEE Administration Insulin Human Lispro 0 units 11/09/16 12:00 11/10/16 05:19 Humalog SC 5 unit 0000,0600,1200,1800 MARILEE Administration Protocol Multivitamins/Vitamin C 5 ml 11/10/16 09:00 Multi-Delyn Liquid PEG QOTHERDAY [facility] Vitamin A 1 ea 11/08/16 23:15 Vitamin A & D Oint Ud Foilpak TOP QSHIFT [facility] - Patient Studies Lab Studies: Lab Studies 11/10/16 11/10/16 11/09/16 Range/Units 04:56 04:45 21:31 WBC 13.3 H (4.8-10.8) K/uL RBC 3.33 L (3.80-5.20) Mil/uL Hgb 9.5 L D (12.0-16.0) g/dL Hct 30.9 L (34.0-47.0) % MCV 92.7 (81.0-99.0) fl MCH 28.7 (27.0-31.0) pg MCHC 30.9 L (33.0-37.0) g/dL RDW 15.1 H (11.5-14.5) % Plt Count 180 (130-400) K/uL Monocytes % (Manual) (0-10) % Sodium 152 H (132-148) mmol/l Potassium 3.6 (3.6-5.0) MMOL/L Chloride 117 H (98-107) mmol/L Carbon Dioxide 23 (22-30) mmol/L Anion Gap 16 (10-20) BUN 37 H (7-17) mg/dl Creatinine 0.7 (0.7-1.2) mg/dL Est GFR ( Amer) > 60 Est GFR (Non-Af Amer) > 60 POC Glucose (mg/dL) 370 H 243 H (65-110) mg/dL Random Glucose 346 H (65-105) mg/dL Calcium 7.9 L (8.4-10.2) mg/dL 11/09/16 11/09/16 11/09/16 Range/Units 17:41 11:33 04:40 WBC (4.8-10.8) K/uL RBC (3.80-5.20) Mil/uL Hgb (12.0-16.0) g/dL Hct (34.0-47.0) % MCV (81.0-99.0) fl MCH (27.0-31.0) pg MCHC (33.0-37.0) g/dL RDW (11.5-14.5) % Plt Count (130-400) K/uL Monocytes % (Manual) 0 (0-10) % Sodium (132-148) mmol/l Potassium (3.6-5.0) MMOL/L Chloride (98-107) mmol/L Carbon Dioxide (22-30) mmol/L Anion Gap (10-20) BUN (7-17) mg/dl Creatinine (0.7-1.2) mg/dL Est GFR ( Amer) Est GFR (Non-Af Amer) POC Glucose (mg/dL) 307 H 273 H (65-110) mg/dL Random Glucose (65-105) mg/dL Calcium (8.4-10.2) mg/dL Laboratory Results - last 24 hr 11/09/16 11/09/16 11/09/16 04:40 11:33 17:41 WBC RBC Hgb Hct MCV MCH MCHC RDW Plt Count Monocytes % (Manual) 0 Sodium Potassium Chloride Carbon Dioxide Anion Gap BUN Creatinine Est GFR ( Amer) Est GFR (Non-Af Amer) POC Glucose (mg/dL) 273 H 307 H Random Glucose Calcium 11/09/16 11/10/16 11/10/16 21:31 04:45 04:56 WBC 13.3 H RBC 3.33 L Hgb 9.5 L D Hct 30.9 L MCV 92.7 MCH 28.7 MCHC 30.9 L RDW 15.1 H Plt Count 180 Monocytes % (Manual) Sodium 152 H Potassium 3.6 Chloride 117 H Carbon Dioxide 23 Anion Gap 16 BUN 37 H Creatinine 0.7 Est GFR ( Amer) > 60 Est GFR (Non-Af Amer) > 60 POC Glucose (mg/dL) 243 H 370 H Random Glucose 346 H Calcium 7.9 L Fingerstick Blood Sugar Results: 370 Review of Systems - Review of Systems Systems not reviewed;Unavailable: Altered Mental Status Critical Care Progress Note - Extremities/Vascular Does the Patient have a Central Venous Catheter?: No Does the Patient need a Central Venous Catheter?: No Does the Patient have a Whitten Catheter?: Yes Does the Patient need a Whitten Catheter?: Yes Catheter Insertion Criteria: Need for accurate measurement of output in critically ill patient - Nutrition Nutrition: Nutrition Category Date Time Status NPO Diet [DIET] Diets 11/08/16 Breakfast Active Assessment/Plan (1) Severe sepsis Current Visit: No Status: Acute Comment: Frequent LABS/LYTES/CBC, XR, EKG Afebrile for the last 24 hours Leucocytosis trending down 20?17.5?13K Urine for gram negative rods On IV Antibiotics with IV Zosyn and Ciprofloxacin Will discontinue Vancomycin MAP 65-75 Keep MAP 65-75 IV Hydratoins Monitor urine output Strict Is & Os Aggressive Pulmonary toilets (2) UTI (urinary tract infection) Current Visit: Yes Status: Acute Comment: PER SEVERE SEPSIS (3) HCAP (healthcare-associated pneumonia) Current Visit: Yes Status: Acute Comment: PER SEVERE SEPSIS (4) Acute respiratory failure with hypoxia Current Visit: No Status: Acute Comment: Improving Wean off FIO2, discontinue BIPAP Supolemental Oxygen to keep O2 sat >94% Frequent Neuro-check Starting on PEG tube feeding MONITOR URINE OUTPUT BD NEBS Q 6H PRN Aggressive pulmonary toilet, Aspiration precautions GI/DVT PPX with SCDs, SQ Lovenox and Famotidine Duonebs q6h (5) COPD (chronic obstructive pulmonary disease) Current Visit: Yes Status: Acute Comment: Duonebs q6h (6) Hypernatremia Current Visit: Yes Status: Acute Priority: High Comment: Free water deficit calculated to be ~3L IV Hydrations with Dextrose 5% In Water Sodium level 159----:>157 (7) Dementia Current Visit: No Status: Chronic Comment: Per son, the patient is DNR/DNI (8) DVT prophylaxis Current Visit: No Status: Acute Comment: Lovenox (9) Chronic CHF Current Visit: Yes Status: Acute
[2016-11-10] MEDS: Multiple Vitamins Oral Solution PEG SCH (09:07)
[2016-11-10] MEDS: Enoxaparin 40 mg Syringe SC SCH (09:07)
--- NOTE | 2016-11-10 10:03 | PQF GENQUE ---
Dr. Murdock, In agreement with Wound mold washer of 11/09 as follows:right sacrum; MASD; DTI and left buttock: MASD:DTI OR:Disagree OR: Other explanation of clinical findings H and P: Back Exam Additional comments: Pressure ulcer Left buttock This form is a permanent part of the medical record Clarification of your documentation is requested to better reflect the severity of illness and intensity of treatment of your patient. Indicators present [] Specify: [] [] Specify: [] [] Specify: [] [] Specify: [] Location in the medical record that reflects the above clinical findings: [] Treatment Provided: [] PHYSICIAN'S RESPONSE Based on your medical judgment of the clinical indicators outlined above please clarify the following: [] Practitioner response [] If unable to determine, please check the box, sign and date. Present On Admission (POA) Indicator: [] Present at the time of admission [] Not present at the time of admission [] Clinically Undetermined In responding to this query, please exercise your independent professional judgment. The fact that a question is asked does not imply that any particular answer is desired or expected. Thank you for your clarification on this documentation. If you have any questions please call. * Thank you, Tyra Valle RN BSN ext. #[phone] MTDD
--- NOTE | 2016-11-10 10:06 | PQF GENQUE ---
Dr. Liu, (1)Is Acute CHF ruled in or ruled out? (2) If ruled in type if known? Systolic or Diastolic or both? OR: Other explanation of clinical findings Dr. Liu: Critical Care Notes: PE:Respiratory/Chest: Positive for: Good Air Exchange, Decreased Breath Sounds, Rales, Rhonchi. ;Negative for: Clear to Auscultation, Respiratory Distress, Accessory Muscle Use, Wheezes 11/09/16 :CHF (congestive heart failure) Current Visit: Yes Status: ACUTE versus : 11/10/16: CHF (congestive heart failure) Current Visit: Yes Status: DELETED 11/09 CXR: IMP: No active disease ;PRo BNP:3000 This form is a permanent part of the medical record Clarification of your documentation is requested to better reflect the severity of illness and intensity of treatment of your patient. Indicators present [] Specify: [] [] Specify: [] [] Specify: [] [] Specify: [] Location in the medical record that reflects the above clinical findings: [] Treatment Provided: [] PHYSICIAN'S RESPONSE Based on your medical judgment of the clinical indicators outlined above please clarify the following: [] Practitioner response [] If unable to determine, please check the box, sign and date. Present On Admission (POA) Indicator: [] Present at the time of admission [] Not present at the time of admission [] Clinically Undetermined In responding to this query, please exercise your independent professional judgment. The fact that a question is asked does not imply that any particular answer is desired or expected. Thank you for your clarification on this documentation. If you have any questions please call. * Thank you, Tyra Valle RN BSN ext. #[phone] MTDD
--- NOTE | 2016-11-10 13:49 | CT ---
PROCEDURE: CT Chest without contrast HISTORY: Respiratory failure , COPD COMPARISON: 02/29/2016. TECHNIQUE: Contiguous axial images were obtained through the chest without intravenous contrast enhancement. Sagittal and coronal reconstructions were performed. Radiation dose (DLP): 677.80 mGy-cm. This CT exam was performed using one or more of the following dose reduction techniques: Automated exposure control, adjustment of the mA and/or kV according to patient size, and/or use of iterative reconstruction technique. FINDINGS: LUNGS: Subsegmental infiltrate left lower lobe. MEDIASTINUM: Unremarkable thoracic aorta. No aneurysm. CARDIOMEGALY, INTERVAL IMPROVEMENT IN PULMONARY VASCULAR CONGESTION. Main pulmonary artery unremarkable. No vascular congestion. No lymphadenopathy. PLEURA: Resolution of pleural effusions. BONES: No fracture. No destructive lesion. UPPER ABDOMEN: Cholelithiasis without CT evidence of acute cholecystitis. OTHER FINDINGS: None. IMPRESSION: Residual small subsegmental infiltrate left lower lobe. Interval improvement in congestive heart failure compared the prior study. Resolution of pleural effusions.
--- NOTE | 2016-11-10 17:01 | CP.PCM.PN ---
Subjective - Date & Time of Evaluation Date of Evaluation: 11/10/16 Time of Evaluation: 12:20 - Subjective Subjective: F/U respiratory failure. Awake , non verbal, not following commands , on V Mask Objective - Vital Signs/Intake and Output Vital Signs (last 24 hours): Temp Pulse Resp BP Pulse Ox 99.2 F 82 22 109/42 L 97 11/10/16 08:00 11/10/16 12:00 11/10/16 12:00 11/10/16 12:00 11/10/16 12:00 Intake and Output: 11/10/16 11/10/16 06:59 18:59 Intake Total 1710 350 Output Total 350 Balance 1360 350 - Medications Medications: Current Medications Acetaminophen (Tylenol 325 Mg Supp) 975 mg [place] ONCE PRN PRN Reason: Fever >100.4 F Last Admin: 11/08/16 21:05 Dose: 975 mg Acetaminophen (Tylenol 650mg/20.3ml Solution Ud) 650 mg PEG Q6H PRN PRN Reason: Fever >100.4 F Albuterol/Ipratropium (Duoneb 3 Mg/0.5 Mg (3 Ml) Ud) 3 ml INH RQ6 PRN PRN Reason: Shortness of Breath Enoxaparin Sodium (Lovenox) 40 mg SC DAILY MARILEE PRN Reason: Protocol Last Admin: 11/10/16 09:07 Dose: 40 mg Piperacillin Sod/Tazobactam (Sod 3.375 gm/ Sodium Chloride) 100 mls @ 100 mls/ hr IVPB Q6 [facility] Last Admin: 11/10/16 16:08 Dose: 100 mls/hr Ciprofloxacin (Cipro 400mg/200ml Dsw) 200 mls @ 200 mls/hr IVPB Q12@0200,1400 [facility] Last Admin: 11/10/16 16:07 Dose: 200 mls/hr Insulin Human Lispro (Humalog) 0 units SC 0000,0600,1200,1800 MARILEE PRN Reason: Protocol Last Admin: 11/10/16 16:39 Dose: 3 unit Multivitamins/Vitamin C (Multi-Delyn Liquid) 5 ml PEG QOTHERDAY [facility] Last Admin: 11/10/16 09:07 Dose: 5 ml Vitamin A (Vitamin A & D Oint Ud Foilpak) 1 ea TOP QSHIFT [facility] Last Admin: 11/10/16 09:08 Dose: 1 ea - Labs Labs: 11/10/16 04:45 11/10/16 04:45 PT 10.8 SECONDS (9.6-11.2) 11/08/16 20:10 INR 1.04 (0.92-1.08) 11/08/16 20:10 APTT 23.6 SECONDS (23.3-32.5) 11/08/16 20:10 - Constitutional Appears: Chronically Ill - Head Exam Head Exam: NORMAL INSPECTION - Eye Exam Eye Exam: PERRL - ENT Exam Additional comments: Poor oral hygiene. - Neck Exam Neck Exam: Normal Inspection - Respiratory Exam Respiratory Exam: Decreased Breath Sounds (at bases), Rhonchi (at bases) - Cardiovascular Exam Cardiovascular Exam: REGULAR RHYTHM - GI/Abdominal Exam GI & Abdominal Exam: Soft, Normal Bowel Sounds - Extremities Exam Additional comments: Legs edema b/l. - Back Exam Additional comments: Pressure ulcer L buttock - Neurological Exam Additional comments: Open eyes at times , no following commands, purposeless movements U/E, L/E. Generalized weakness. - Skin Skin Exam: Warm Assessment and Plan (1) Respiratory failure Status: Acute (2) Severe sepsis Status: Acute (3) Hypernatremia Status: Acute (4) COPD (chronic obstructive pulmonary disease) Status: Acute (5) Diabetes mellitus with hyperglycemia Status: Acute - Assessment and Plan (Free Text) Plan: wbc 13.3 , afebril , continue Cipro , Zosyn , DuoNeb , V Mask , Pulmocare PEG feeding. ICU Time: 40 min.
[2016-11-10 18:24] VITALS: O2SAT 100
--- NOTE | 2016-11-10 19:28 | CARD ---
APPROVED REPORT EXAM: Two-dimensional and M-mode echocardiogram with Doppler and color Doppler. Other Information Quality : AverageRhythm : NSR Technically limited study due to COPD INDICATION ICD: RESP.FALIURE COPD 2D DIMENSIONS IVSd0.84 (0.7-1.1cm)LVDd3.93 (3.9-5.9cm) LVOT Diameter2.61 (1.8-2.4cm)PWd0.70 (0.7-1.1cm) IVSs1.72 (0.8-1.2cm)LVDs3.49 (2.5-4.0cm) FS (%) 11.2 %PWs1.47 (0.8-1.2cm) M-Mode DIMENSIONS Left Atrium (MM)4.88 (2.5-4.0cm)Aortic Root3.09 (2.2-3.7cm) Aortic Cusp Exc.1.91 (1.5-2.0cm) Mitral Valve MV E Dnwxpzky30.4cm/sMV DECEL EURL577plAX A Lczxqend272.0cm/s MV LXM13qiH/A ratio0.5MVA (PHT)3.49cm2 TDI E/Lateral E'0.0E/Medial E'0.0 LEFT VENTRICLE The left ventricle is normal size. There is mild concentric left ventricular hypertrophy. The left ventricular function is normal. The left ventricular ejection fraction is - 60%. There is normal LV segmental wall motion. Transmitral Doppler flow pattern is Grade I-abnormal relaxation pattern. No left ventricle thrombus noted on this study. There is no ventricular septal defect visualized. There is no left ventricular aneurysm. There is no mass noted in the left ventricle. RIGHT VENTRICLE The right ventricle is normal size. There is normal right ventricular wall thickness. The right ventricular systolic function is normal. ATRIA The left atrium is mildly dilated. There is no thrombus suspected in the left atrium. The right atrium size is normal. The interatrial septum is intact with no evidence for an atrial septal defect. AORTIC VALVE The aortic valve is normal in structure and function. No aortic regurgitation is present. There is no aortic valvular stenosis. MITRAL VALVE The mitral valve is normal in structure and function. There is no evidence of mitral valve prolapse. There is no mitral valve stenosis. There is no mitral valve regurgitation noted. TRICUSPID VALVE The tricuspid valve is normal in structure and function. There is no tricuspid valve regurgitation noted. There is no tricuspid valve prolapse or vegetation. There is no tricuspid valve stenosis. PULMONIC VALVE The pulmonic valve is not well visualized. Doppler studies of the PV were not performed. GREAT VESSELS The aortic root is normal in size. The IVC was not visualized. PERICARDIAL EFFUSION Small anterior pericardial effusion. There is no pleural effusion. <Conclusion> The study is only of fair quality. The left ventricle is normal size. There is mild concentric left ventricular hypertrophy. The left ventricular function is normal. The left ventricular ejection fraction is - 60%. The left atrium is mildly dilated. The mitral, aortic and tricuspid valves are normal.
[2016-11-11] MEDS: Insulin Lispro (humaLOG) 100 Units/ml Inj SC SCH ×3 (00:30→11:22)
[2016-11-11] MEDS: Ciprofloxacin 400mg/200ml D5W 200 ML IVPB SCH ×2 (02:12→14:37)
[2016-11-11] MEDS: Piperacillin/Tazobact 3.375 GM in Sodium Chloride 0.9% 100 ML IVPB SCH ×4 (04:13→21:21)
[2016-11-11] MEDS: Enoxaparin 40 mg Syringe SC SCH (09:33)
[2016-11-11] MEDS ORDERED: Dextrose 50% SYRINGE Inj (50 ml) IV PRN (11:37)
[2016-11-11] MEDS ORDERED: Glucagon Recombinant 1 mg Inj IM PRN (11:37)
--- NOTE | 2016-11-11 14:16 | CP.PCM.PN ---
Subjective - Date & Time of Evaluation Date of Evaluation: 11/11/16 Time of Evaluation: 11:10 - Subjective Subjective: F/u Respiratory failure pt with minimal response to tactile stimuli, purposeless movements. Objective - Vital Signs/Intake and Output Vital Signs (last 24 hours): Temp Pulse Resp BP Pulse Ox 99.1 F 60 19 107/43 L 100 11/11/16 12:00 11/11/16 12:00 11/11/16 12:00 11/11/16 12:00 11/11/16 12:00 Intake and Output: 11/11/16 11/11/16 06:59 18:59 Intake Total 2250 Output Total 400 Balance 1850 - Medications Medications: Current Medications Acetaminophen (Tylenol 325 Mg Supp) 975 mg UT ONCE PRN PRN Reason: Fever >100.4 F Last Admin: 11/08/16 21:05 Dose: 975 mg Acetaminophen (Tylenol 650mg/20.3ml Solution Ud) 650 mg PEG Q6H PRN PRN Reason: Fever >100.4 F Albuterol/Ipratropium (Duoneb 3 Mg/0.5 Mg (3 Ml) Ud) 3 ml INH RQ6 PRN PRN Reason: Shortness of Breath Dextrose (Glutose 15) 0 gm PO ONCE PRN; Protocol PRN Reason: Hypoglycemia Protocol Dextrose (Dextrose 50% Inj) 0 ml IV STAT PRN; Protocol PRN Reason: Hyglycemia Protocol Enoxaparin Sodium (Lovenox) 40 mg SC DAILY [facility] PRN Reason: Protocol Last Admin: 11/11/16 09:33 Dose: 40 mg Glucagon (Glucagen Diagnostic Kit) 0 mg IM STAT PRN; Protocol PRN Reason: Hypoglycemia Protocol Piperacillin Sod/Tazobactam (Sod 3.375 gm/ Sodium Chloride) 100 mls @ 100 mls/ hr IVPB Q6 [facility] Last Admin: 11/11/16 09:34 Dose: 100 mls/hr Ciprofloxacin (Cipro 400mg/200ml Dsw) 200 mls @ 200 mls/hr IVPB Q12@0200,1400 [facility] Last Admin: 11/11/16 02:12 Dose: 200 mls/hr Insulin Human Lispro (Humalog) 0 units SC 0000,0600,1200,1800 [facility] PRN Reason: Protocol Last Admin: 11/11/16 11:22 Dose: 5 unit Insulin Human Regular (Humulin R) 0 units SC ACHS [facility] PRN Reason: Protocol Multivitamins/Vitamin C (Multi-Delyn Liquid) 5 ml PEG QOTHERDAY [facility] Last Admin: 11/10/16 09:07 Dose: 5 ml Vitamin A (Vitamin A & D Oint Ud Foilpak) 1 ea TOP QSHIFT [facility] Last Admin: 11/10/16 09:08 Dose: 1 ea - Labs Labs: 11/10/16 04:45 11/10/16 04:45 PT 10.8 SECONDS (9.6-11.2) 11/08/16 20:10 INR 1.04 (0.92-1.08) 11/08/16 20:10 APTT 23.6 SECONDS (23.3-32.5) 11/08/16 20:10 - Constitutional Appears: No Acute Distress, Chronically Ill - Head Exam Head Exam: NORMAL INSPECTION - Eye Exam Eye Exam: PERRL - ENT Exam Additional comments: Poor oral hygiene - Neck Exam Neck Exam: Normal Inspection - Respiratory Exam Respiratory Exam: Decreased Breath Sounds (at bases), Rhonchi (b/l) - Cardiovascular Exam Cardiovascular Exam: REGULAR RHYTHM - GI/Abdominal Exam GI & Abdominal Exam: Soft, Normal Bowel Sounds - Extremities Exam Additional comments: Legs edema b/l - Back Exam Additional comments: Pressure ulcer L buttock - Neurological Exam Additional comments: Open eyes at times, mumbling sounds, no following commands, purposeless movements U/E, L/E. Generalized weakness. - Psychiatric Exam Psychiatric exam: Flat Affect - Skin Skin Exam: Warm Assessment and Plan (1) Respiratory failure Status: Acute (2) Severe sepsis Status: Acute (3) UTI (urinary tract infection) Status: Acute (4) Hypernatremia Status: Acute (5) COPD (chronic obstructive pulmonary disease) Status: Acute (6) Diabetes mellitus with hyperglycemia Status: Acute - Assessment and Plan (Free Text) Plan: Continue Cipro, Zosyn, rest of Tx. For transfer to [facility].
[2016-11-11] MEDS: Insulin Regular 100 units/ml SC SCH ×2 (16:25→23:44)
[2016-11-11] MEDS: Insulin Detemir 100 Units/ml Inj SC SCH (16:45)
[2016-11-12] MEDS: Ciprofloxacin 400mg/200ml D5W 200 ML IVPB SCH ×2 (02:34→16:33)
[2016-11-12] MEDS: Piperacillin/Tazobact 3.375 GM in Sodium Chloride 0.9% 100 ML IVPB SCH ×3 (03:39→18:03)
[2016-11-12] MEDS: Insulin Regular 100 units/ml SC SCH ×3 (06:56→16:33)
[2016-11-12] MEDS: Multiple Vitamins Oral Solution PEG SCH (08:57)
[2016-11-12] MEDS: Enoxaparin 40 mg Syringe SC SCH (08:57)
[2016-11-12] MEDS: Insulin Detemir 100 Units/ml Inj SC SCH ×2 (11:05→16:42)
[2016-11-12 12:34] LABS: BASO % 0.2 % (0.0-2.0); EOS # 0.1 K/uL (0.0-0.7); EOS % 1.3 % (0.0-4.0); HEMATOCRIT 28.2 % (34.0-47.0); LYMPH % 9.6 % (20.0-40.0); MEAN CELL VOLUME 88.9 fl (81.0-99.0); MEAN CORPUSCULAR HEMOGLOBIN 29.7 pg (27.0-31.0); MEAN CORPUSCULAR HGB CONC 33.4 g/dL (33.0-37.0); MEAN PLATELET VOLUME 10.3 fl (7.2-11.7); MONO # 0.6 K/uL (0.0-0.8); MONO % 5.2 % (0.0-10.0); NEUT % 83.7 % (50.0-75.0); PLATELET COUNT 171 K/uL (130-400); WHITE BLOOD COUNT 10.7 K/uL (4.8-10.8)
[2016-11-12 12:40] LABS: CHLORIDE 107 mmol/L (98-107)
[2016-11-12 12:41] LABS: POTASSIUM 3.5 MMOL/L (3.6-5.0); SODIUM 139 mmol/l (132-148)
[2016-11-12 12:43] LABS: CARBON DIOXIDE 25 mmol/L (22-30); GFR AFRICAN-AMERICAN > 60
[2016-11-12 12:44] LABS: ALKALINE PHOSPHATASE 123 U/L (38-126); ALT/SGPT 44 U/L (9-52); AST/SGOT 32 U/L (14-36); BILIRUBIN,TOTAL 0.4 mg/dl (0.2-1.3); BLOOD UREA NITROGEN 17 mg/dl (7-17); CALCIUM 8.1 mg/dL (8.4-10.2); GLUCOSE,RANDOM 150 mg/dL (65-105); TOTAL PROTEIN 5.6 G/DL (6.3-8.2)
[2016-11-12 13:09] LABS: EOSINOPHIL 1 % (0-7); NEUTROPHIL 80 % (42-75); TOTAL CELLS COUNTED 100
[2016-11-12 13:11] LABS: GIANT PLATELETS PRESENT; LARGE PLATELETS PRESENT
--- NOTE | 2016-11-12 14:39 | CP.PCM.PN ---
Subjective - Date & Time of Evaluation Date of Evaluation: 11/12/16 Time of Evaluation: 10:00 - Subjective Subjective: F/U Respiratory failure. Pt with eyes open, purposeless movements with head and extremities. Objective - Vital Signs/Intake and Output Vital Signs (last 24 hours): Temp Pulse Resp BP Pulse Ox 97.7 F 70 24 137/61 100 11/12/16 12:00 11/12/16 14:00 11/12/16 14:00 11/12/16 14:00 11/12/16 14:00 Intake and Output: 11/12/16 11/12/16 06:59 18:59 Intake Total 1250 250 Output Total 0 Balance 1250 250 - Medications Medications: Current Medications Acetaminophen (Tylenol 325 Mg Supp) 975 mg NE ONCE PRN PRN Reason: Fever >100.4 F Last Admin: 11/08/16 21:05 Dose: 975 mg Acetaminophen (Tylenol 650mg/20.3ml Solution Ud) 650 mg PEG Q6H PRN PRN Reason: Fever >100.4 F Albuterol/Ipratropium (Duoneb 3 Mg/0.5 Mg (3 Ml) Ud) 3 ml INH RQ6 PRN PRN Reason: Shortness of Breath Dextrose (Glutose 15) 0 gm PO ONCE PRN; Protocol PRN Reason: Hypoglycemia Protocol Dextrose (Dextrose 50% Inj) 0 ml IV STAT PRN; Protocol PRN Reason: Hyglycemia Protocol Glipizide (Glucotrol) 5 mg PEG ACB [facility] Last Admin: 11/12/16 08:57 Dose: 5 mg Glucagon (Glucagen Diagnostic Kit) 0 mg IM STAT PRN; Protocol PRN Reason: Hypoglycemia Protocol Piperacillin Sod/Tazobactam (Sod 3.375 gm/ Sodium Chloride) 100 mls @ 100 mls/ hr IVPB Q6 [facility] Last Admin: 11/12/16 09:05 Dose: 100 mls/hr Ciprofloxacin (Cipro 400mg/200ml Dsw) 200 mls @ 200 mls/hr IVPB Q12@0200,1400 [facility] Last Admin: 11/12/16 02:34 Dose: 200 mls/hr Insulin Detemir (Levemir) 12 units SC BID [facility] Last Admin: 11/12/16 11:05 Dose: 12 units Insulin Human Regular (Humulin R) 0 units SC ACHS [facility] PRN Reason: Protocol Last Admin: 11/12/16 11:09 Dose: 2 units Metformin HCl (Glucophage) 500 mg PEG BIDWM [facility] Last Admin: 11/12/16 08:57 Dose: 500 mg Multivitamins/Vitamin C (Multi-Delyn Liquid) 5 ml PEG QOTHERDAY [facility] Last Admin: 11/12/16 08:57 Dose: 5 ml Vitamin A (Vitamin A & D Oint Ud Foilpak) 1 ea TOP QSHIFT [facility] Last Admin: 11/10/16 09:08 Dose: 1 ea - Labs Labs: 11/12/16 12:15 11/12/16 12:15 PT 10.8 SECONDS (9.6-11.2) 11/08/16 20:10 INR 1.04 (0.92-1.08) 11/08/16 20:10 APTT 23.6 SECONDS (23.3-32.5) 11/08/16 20:10 - Constitutional Appears: Chronically Ill - Head Exam Head Exam: NORMAL INSPECTION - Eye Exam Eye Exam: PERRL - ENT Exam ENT Exam: Normal Oropharynx Additional comments: Poor oral hygiene - Neck Exam Neck Exam: Normal Inspection - Respiratory Exam Respiratory Exam: Decreased Breath Sounds (at bases), Rhonchi (b/l) - Cardiovascular Exam Cardiovascular Exam: REGULAR RHYTHM - GI/Abdominal Exam GI & Abdominal Exam: Soft, Normal Bowel Sounds - Extremities Exam Additional comments: Legs edema b/l - Back Exam Additional comments: Pressure ulcer L buttock - Neurological Exam Additional comments: Open eyes at times, mumbling sounds, no following commands, purposeless movements U/E, L/E. Generalized weakness. - Psychiatric Exam Psychiatric exam: Flat Affect - Skin Skin Exam: Warm Assessment and Plan (1) Respiratory failure Status: Acute (2) Severe sepsis Status: Acute (3) UTI (urinary tract infection) Status: Acute (4) Hypernatremia Status: Acute (5) COPD (chronic obstructive pulmonary disease) Status: Acute (6) Diabetes mellitus with hyperglycemia Status: Acute - Assessment and Plan (Free Text) Plan: PICC line insertion today. Pt can be discharged to [facility] after insertion of PICC line.
[2016-11-12] MEDS ORDERED: Lidocaine 1% Inj (20ml) ONE (14:45)
--- NOTE | 2016-11-12 15:07 | PCM.SURG1 ---
Surgeon's Initial Post Op Note - Surgeon's Notes Surgeon: Stuart Jean MD Weigh Box Tender: NONE Type of Anesthesia: Local Pre-Operative Diagnosis: Poor venous access Operative Findings: Patent right basilic vein. Post-Operative Diagnosis: Poor venous access Operation Performed: Right basilic vein dual lumen picc placement, 38 cm. Tip in SVC. Specimen/Specimens Removed: NONE Estimated Blood Loss: EBL {In ML}: 2 Blood Products Given: N/A Drains Used: No Drains Post-Op Condition: Fair Date of Surgery/Procedure: 11/12/16 Time of Surgery/Procedure: 15:05
[2016-11-12 16:27] VITALS: TEMP 98
[2016-11-12 18:03] VITALS: BP 120/49; PULSE 67; RESP 14
--- NOTE | 2016-11-13 14:41 | VASCULAR ---
PROCEDURE: Date of procedure: 11/12/2016 Procedure: 1. Placement of a right arm PICC with ultrasound and fluoroscopic guidance, CPT 94566 2. PICC tip confirmation with spot radiograph and is in the superior vena cava Medications: 1 percent lidocaine HISTORY: Bacteremia requiring long-term IV antibiotics TECHNIQUE: Following informed consent and procedure time-out, the patient was placed supine on the interventional table and the right arm prepped and draped in the usual sterile fashion. Ultrasound showed a patent and compressible right basilic vein. After the skin was anesthetized with lidocaine, the basilic vein was accessed with micro micropuncture technique using ultrasound guidance. A guidewire was then advanced under fluoroscopic guidance into the superior vena cava. An image documenting ultrasound guidance for vascular access was permanently saved. The length of the dual-lumen 5 [place] PICC was trimmed to 38 centimeters and advanced through a peel-away sheath. The PICC was position with tip of PICC confirm a spot radiograph the superior vena cava. The PICC was secured to the patient's skin. The PICC was flushed. A biopatch and sterile dressing was applied. IMPRESSION: Placement of a dual-lumen 5 [place] PICC trimmed to 37 centimeters via right basilic vein. The tip of the PICC is confirmed with spot radiograph and is in the superior vena cava.
== END 2016-11-12 20:10 | DRG 871 ==
LOC: H.ER 18:40 → H.ERHOLD 21:37 → H.ICU/CCU 11-09 00:20
PROVIDERS: ADMIT Internal Medicine Pulmonary Disease; ATTEND Internal Medicine Pulmonary Disease
PROC: 5A09357 Assistance with Respiratory Ventilation, Less than 24 Consecutive Hours, Continuous Positive Airway Pressure (ICD-10-PCS; 2016-11-08)
PROC: 3E0G76Z Introduction of Nutritional Substance into Upper GI, Via Natural or Artificial Opening (ICD-10-PCS; 2016-11-09)
PROC: 3E04329 Introduction of Other Anti-infective into Central Vein, Percutaneous Approach (ICD-10-PCS; principal; 2016-11-12)
PROC: B518ZZA Fluoroscopy of Superior Vena Cava, Guidance (ICD-10-PCS; 2016-11-12)
PROC: 02HV33Z Insertion of Infusion Device into Superior Vena Cava, Percutaneous Approach (ICD-10-PCS; 2016-11-12)
DX: A41.9 Sepsis, unspecified organism (principal); J18.9 Pneumonia, unspecified organism; J96.01 Acute respiratory failure with hypoxia; L89.159 Pressure ulcer of sacral region, unspecified stage; L89.329 Pressure ulcer of left buttock, unspecified stage; E87.0 Hyperosmolality and hypernatremia; J44.0 Chronic obstructive pulmonary disease with (acute) lower respiratory infection; N39.0 Urinary tract infection, site not specified; I11.0 Hypertensive heart disease with heart failure; I50.9 Heart failure, unspecified; J44.1 Chronic obstructive pulmonary disease with (acute) exacerbation; R65.20 Severe sepsis without septic shock; G30.9 Alzheimer's disease, unspecified; F02.80 Dementia in other diseases classified elsewhere, unspecified severity, without behavioral disturbance, psychotic disturbance, mood disturbance, and anxiety; E11.65 Type 2 diabetes mellitus with hyperglycemia; B96.20 Unspecified Escherichia coli [E. coli] as the cause of diseases classified elsewhere; E86.0 Dehydration; K21.9 Gastro-esophageal reflux disease without esophagitis; Y95 Nosocomial condition; D64.9 Anemia, unspecified; Z93.1 Gastrostomy status; Z66 Do not resuscitate; Z74.01 Bed confinement status; Z86.73 Personal history of transient ischemic attack (TIA), and cerebral infarction without residual deficits; Z87.01 Personal history of pneumonia (recurrent); Z87.891 Personal history of nicotine dependence